=== PATIENT | female | born 1995 | race African-American/Black ===

== ENCOUNTER 2017-10-27 11:37 | Emergency (ER) | payer OTHER ==
[~2017-10-27] VITALS: Ht 175.3 cm; Wt 109.1 kg
[2017-10-27 11:40] VITALS: BP 133/83; TEMP 99.1
[2017-10-27] MEDS ORDERED: NEURONTIN300 MG/CAP PO (11:44)
[2017-10-27] MEDS ORDERED: MEDROL 4MG DOSPA4 MG PO (12:08)
[2017-10-27] MEDS ORDERED: DELESTROGEN40 MG/ML IM (12:11)
[2017-10-27] MEDS ORDERED: FLEXERIL 1010 MG/TAB PO (12:23)
[2017-10-27 12:31] VITALS: PULSE 83
== END 2017-10-27 12:31 | disposition home or self-care (01) ==
LOC: COL.ER 11:37
DX: M54.41 Lumbago with sciatica, right side (principal); Z98.890 Other specified postprocedural states; Z88.5 Allergy status to narcotic agent
CPT/HCPCS: J1885